=== PATIENT | female | born 1965 | race Caucasian/White ===

== ENCOUNTER → 2020-05-24 | Outpatient (CLI) | payer BC ==
[~2020-05-24] MED LIST: ATOR-2 PO; DULO60CA56 PO; ESTR20VI IM; FLUT9.9S NAS; HYDR25TA6 PO; LEVO75TA5 PO; LISI40TA PO; METF10007 PO; NARA1TAB PO; OLAN5TAB9 PO; OMEP-110 PO; PREG200C PO; PROG100C10 PO; ROPI0.5T4 PO
[2020-05-24 12:33] LABS: BASOPHILS # (AUTO) 0.04 x10^3/uL (0-0.1); BASOPHILS % (AUTO) 1 % (0-1); EOSINOPHILS # (AUTO) 0.04 x10^3/uL (0-0.4); EOSINOPHILS % (AUTO) 0 % (1-7); LYMPHOCYTES # (AUTO) 2.69 x10^3/uL (1-3.4); LYMPHOCYTES % (AUTO) 30 % (22-44); MD NO; MEAN CORPUSCULAR HEMOGLOBIN 29.2 pg (27.0-34.8); MEAN CORPUSCULAR HGB CONC 33.3 g/dL (32.4-35.8); MEAN CORPUSCULAR VOLUME 87.6 fL (80-100); MEAN PLATELET VOLUME 8.2 fL (7.4-10.4); MONOCYTES # (AUTO) 0.64 x10^3/uL (0.2-0.8); MONOCYTES % (AUTO) 7 % (2-9); NEUTROPHILS # (AUTO) 5.53 x10^3/uL (1.8-6.8); NEUTROPHILS % (AUTO) 62 % (42-75); PLATELET COUNT 273 x10^3/uL (130-400); RED BLOOD COUNT 4.84 x10^6/uL (3.82-5.3); RED CELL DISTRIBUTION WIDTH 13.5 % (9.6-15.2)
[2020-05-24 12:38] LABS: INTERNATIONAL NORMALIZED RATIO 0.99 (0.93-1.1); PROTHROMBIN TIME 10.5 Seconds (9.6-11.5)
[2020-05-24 12:40] LABS: ANION GAP 5 mmol/L (5-15); CALCIUM 9.5 mg/dL (8.5-10.1); CHLORIDE 104 mmol/L (98-107)
[2020-05-24 12:43] LABS: MICROSCOPIC NOT IND
[2020-05-24 12:43] LABS: ALANINE AMINOTRANSFERASE 29 U/L (12-78); ALKALINE PHOSPHATASE 55 U/L (45-117); BILIRUBIN,TOTAL 1.1 mg/dL (0.2-1.0); CREATININE 0.71 mg/dL (0.55-1.02); TOTAL PROTEIN 7.5 g/dL (6.4-8.2)
== END | disposition home or self-care (01) ==
LOC: STAR 11:05
PROVIDERS: ATTEND Neurological Surgery
DX: Z01.810 Encounter for preprocedural cardiovascular examination (principal); Z01.811 Encounter for preprocedural respiratory examination; Z01.812 Encounter for preprocedural laboratory examination; R79.1 Abnormal coagulation profile; R82.90 Unspecified abnormal findings in urine; R94.31 Abnormal electrocardiogram [ECG] [EKG]; M43.16 Spondylolisthesis, lumbar region; M54.16 Radiculopathy, lumbar region; M51.86 Other intervertebral disc disorders, lumbar region
CPT/HCPCS: 36415; 71046; 80053; 81003; 85025; 85610; 85730; 93005

== ENCOUNTER 2020-06-05 05:26 | Inpatient (IN) | payer BC ==
[~2020-06-05] VITALS: Ht 162.6 cm; Wt 101.0 kg
[~2020-06-05 05:26] MED LIST changes: +CARV25TA12 PO; +OXYC-307 PO; +POTASSIUM HCL PO
[2020-06-05] MEDS ORDERED: LACTATED RINGERS 1,000 ML IV SCH (06:06)
[2020-06-05] MEDS ORDERED: VANCOMYCIN 1,000 MG ONE (06:30)
[2020-06-05] MEDS ORDERED: BUPIVACAINE/PF-EPI 0.5% 1:200K ONE (06:30)
[2020-06-05] MEDS ORDERED: CHLORHEXIDINE 15 ML UDC MM ONE (06:30)
[2020-06-05] MEDS ORDERED: BACITRACIN 50,000 UNIT ONE (06:30)
[2020-06-05] MEDS ORDERED: FENTANYL PF 250 MCG/5ML ONE (06:51)
[2020-06-05] MEDS ORDERED: MIDAZOLAM 1 MG/ML, 2ML ONE (06:51)
[2020-06-05] MEDS ORDERED: GABAPENTIN 300 MG CAPSULE PO ONE (07:00)
[2020-06-05] MEDS ORDERED: MEPERIDINE/PF 25MG/0.5ML IVPush PRN (07:00)
[2020-06-05] MEDS ORDERED: ACETAMINOPHEN 500 MG TABLET PO ONE (07:00)
[2020-06-05] MEDS ORDERED: LABETALOL 5MG/ML, 20ML IV PRN (07:00)
[2020-06-05] MEDS ORDERED: hydrALAzine 20 MG/ML, 1ML IV PRN (07:00)
[2020-06-05] MEDS ORDERED: DIPHENHYDRAMINE 50 MG/ML, 1ML IVPush PRN ×2 (07:00→09:00)
[2020-06-05] MEDS ORDERED: HALOPERIDOL 5 MG/ML IV PRN (07:00)
[2020-06-05] MEDS ORDERED: FENTANYL PF 100 MCG/2ML IV PRN (07:00)
[2020-06-05] MEDS ORDERED: CEFAZOLIN 1,000 MG ONE (08:16)
[2020-06-05] MEDS ORDERED: NEOSTIGMINE 1 MG/ML, 10ML ONE (08:16)
[2020-06-05] MEDS ORDERED: ONDANSETRON 2MG/ML, 2ML ONE (08:16)
[2020-06-05] MEDS ORDERED: GLYCOPYRROLATE 0.2MG/1ML, 5ML ONE (08:16)
[2020-06-05] MEDS ORDERED: ROCURONIUM 10MG/ML,5ML ONE (08:16)
[2020-06-05] MEDS ORDERED: SUCCINYLCHOLINE 20 MG/ML, 10ML ONE (08:16)
[2020-06-05] MEDS ORDERED: DEXAMETHASONE 4 MG/ML, 1ML ONE (08:16)
[2020-06-05] MEDS ORDERED: PROPOFOL 10 MG/ML, 20ML ONE (08:16)
[2020-06-05] MEDS ORDERED: OXYcodone 5 MG/5 ML ORAL.SOL UDC ONE (08:44)
[2020-06-05] MEDS ORDERED: HYDROmorphone 2 MG/ML, 1ML ONE (08:44)
[2020-06-05] MEDS: OXYcodone 5 MG/5 ML ORAL.SOL UDC PO PRN ×2 (08:46→09:10)
[2020-06-05] MEDS: HYDROmorphone 1 MG/ML, 1ML INJ IVPush PRN ×9 (08:47→23:17)
[2020-06-05] MEDS ORDERED: ACETAMINOPHEN 325 MG TABLET PO PRN (09:00)
[2020-06-05] MEDS ORDERED: BISACODYL 10 MG SUPP PR PRN (09:00)
[2020-06-05] MEDS ORDERED: ONDANSETRON 2MG/ML, 2ML IVPush PRN (09:00)
[2020-06-05] MEDS ORDERED: MAGNESIUM HYDROXIDE 8%, 30ML UDC PO PRN (09:00)
[2020-06-05] MEDS ORDERED: NARATRIPTAN HCL 2.5 MG HOMEMEDPO PRN (09:00)
[2020-06-05] MEDS ORDERED: INSULIN REGULAR 100 UNITS/ML, 3ML VIAL SQ-INSULIN PRN ×2 (09:00→12:00)
[2020-06-05] MEDS ORDERED: PROGESTERONE 100 MG CAPSULE PO SCH (09:00)
[2020-06-05] MEDS ORDERED: OLANZAPINE 5 MG TABLET PO SCH (09:00)
[2020-06-05] MEDS ORDERED: PHARMACY MAY ADJ FOR RENAL FX MC PRN (09:00)
[2020-06-05] MEDS ORDERED: PROMETHAZINE 25 MG/ML, 1ML IM PRN (09:00)
[2020-06-05] MEDS ORDERED: HYDROmorphone 1 MG/ML, 1ML INJ ONE (09:34)
[2020-06-05] MEDS ORDERED: METHOCARBAMOL 1,000 MG in DEXTROSE 5% 100 ML IV ONE (10:03)
[2020-06-05] MEDS: DULOXETINE 30 MG CAPSULE.DR PO SCH (10:51)
[2020-06-05] MEDS: PREGABALIN 200 MG CAPSULE PO SCH ×2 (10:52→21:10)
[2020-06-05] MEDS: metFORMIN XR 500 MG TAB.ER.24H PO SCH (10:52)
[2020-06-05] MEDS: HYDROCHLOROTHIAZIDE 25 MG TABLET PO SCH (10:53)
[2020-06-05] MEDS: CARVEDILOL 25 MG TABLET PO SCH ×2 (10:53→21:10)
[2020-06-05] MEDS: NS + 20MEQ KCL 1,000 ML IV SCH ×2 (10:54→23:17)
[2020-06-05] MEDS: POTASSIUM CHLORIDE 10 MEQ TABLET.ER PO SCH (10:59)
[2020-06-05] MEDS: LEVOTHYROXINE 75 MCG TABLET PO SCH (11:00)
[2020-06-05 12:44] VITALS: BP 117/71
[2020-06-05] MEDS: OXYcodone/APAP 10/325MG TABLET PO PRN ×3 (12:52→21:11)
[2020-06-05] MEDS: OMEPRAZOLE 20 MG CAPSULE.DR PO SCH (15:02)
[2020-06-05] MEDS: CEFAZOLIN PMX 1GM/50ML 50 ML IVPB SCH ×2 (15:02→23:25)
[2020-06-05 20:09] VITALS: BP 124/58
[2020-06-05] MEDS: INSULIN REGULAR 100 UNITS/ML, 3ML VIAL SQ-INSULIN SCH ×2 (20:30→21:00)
[2020-06-05] MEDS ORDERED: PREGABALIN 200 MG CAPSULE PO SCH (21:00)
[2020-06-05] MEDS: ATORVASTATIN 40 MG TABLET PO SCH (21:10)
[2020-06-05] MEDS: ROPINIROLE 0.5MG TABLET PO SCH (21:10)
[2020-06-05] MEDS: OLANZAPINE 5 MG TABLET PO SCH (21:11)
[2020-06-05] MEDS: METHOCARBAMOL 750 MG TABLET PO PRN (23:23)
[2020-06-06 00:12] VITALS: BP 158/91
[2020-06-06] MEDS: OXYcodone/APAP 10/325MG TABLET PO PRN ×4 (01:18→20:52)
[2020-06-06] MEDS: LEVOTHYROXINE 75 MCG TABLET PO SCH (04:20)
[2020-06-06] MEDS: HYDROmorphone 1 MG/ML, 1ML INJ IVPush PRN ×9 (04:20→22:49)
[2020-06-06 04:21] VITALS: BP 156/99
[2020-06-06] MEDS: OMEPRAZOLE 20 MG CAPSULE.DR PO SCH ×2 (05:19→16:18)
[2020-06-06 05:40] LABS: BASOPHILS # (AUTO) 0.02 x10^3/uL (0-0.1); BASOPHILS % (AUTO) 0 % (0-1); EOSINOPHILS # (AUTO) 0.01 x10^3/uL (0-0.4); EOSINOPHILS % (AUTO) 0 % (1-7); LYMPHOCYTES # (AUTO) 1.59 x10^3/uL (1-3.4); LYMPHOCYTES % (AUTO) 19 % (22-44); MD NO; MEAN CORPUSCULAR HEMOGLOBIN 29.9 pg (27.0-34.8); MEAN CORPUSCULAR HGB CONC 33.3 g/dL (32.4-35.8); MONOCYTES # (AUTO) 0.64 x10^3/uL (0.2-0.8); MONOCYTES % (AUTO) 8 % (2-9); NEUTROPHILS # (AUTO) 6.31 x10^3/uL (1.8-6.8); NEUTROPHILS % (AUTO) 74 % (42-75); PLATELET COUNT 157 x10^3/uL (130-400); RED BLOOD COUNT 3.84 x10^6/uL (3.82-5.3); RED CELL DISTRIBUTION WIDTH 13.4 % (9.6-15.2)
[2020-06-06 05:54] LABS: ANION GAP 5 mmol/L (5-15); CALCIUM 8.4 mg/dL (8.5-10.1); CHLORIDE 104 mmol/L (98-107); CREATININE 0.52 mg/dL (0.55-1.02)
[2020-06-06] MEDS ORDERED: VANCOMYCIN 1,000 MG ONE (06:32)
[2020-06-06] MEDS ORDERED: BACITRACIN 50,000 UNIT ONE (06:32)
[2020-06-06] MEDS ORDERED: BUPIVACAINE/PF-EPI 0.5% 1:200K ONE (06:32)
[2020-06-06] MEDS ORDERED: FENTANYL PF 250 MCG/5ML ONE (07:31)
[2020-06-06] MEDS ORDERED: MIDAZOLAM 1 MG/ML, 2ML ONE (07:31)
[2020-06-06] MEDS: INSULIN REGULAR 100 UNITS/ML, 3ML VIAL SQ-INSULIN SCH ×4 (07:34→21:00)
[2020-06-06 07:53] VITALS: BP 160/85
[2020-06-06] MEDS ORDERED: metFORMIN XR 500 MG TAB.ER.24H PO SCH (08:00)
[2020-06-06] MEDS: NS + 20MEQ KCL 1,000 ML IV SCH ×4 (08:17→19:34)
[2020-06-06] MEDS: metFORMIN XR 500 MG TAB.ER.24H PO SCH (08:19)
[2020-06-06] MEDS: METHOCARBAMOL 750 MG TABLET PO PRN ×2 (08:19→20:51)
[2020-06-06] MEDS: PREGABALIN 200 MG CAPSULE PO SCH ×2 (08:20→20:51)
[2020-06-06] MEDS: DULOXETINE 30 MG CAPSULE.DR PO SCH (08:20)
[2020-06-06] MEDS: POTASSIUM CHLORIDE 10 MEQ TABLET.ER PO SCH (08:20)
[2020-06-06] MEDS: HYDROCHLOROTHIAZIDE 25 MG TABLET PO SCH (08:20)
[2020-06-06] MEDS: CARVEDILOL 25 MG TABLET PO SCH ×2 (08:20→20:51)
[2020-06-06] MEDS: FLUTICASONE NASAL SPRAY 16GM NAS SCH (08:21)
[2020-06-06] MEDS ORDERED: CHLORHEXIDINE 15 ML UDC MM STA (08:43)
[2020-06-06] MEDS ORDERED: GABAPENTIN 300 MG CAPSULE ONE (08:57)
[2020-06-06] MEDS ORDERED: ACETAMINOPHEN 500 MG TABLET ONE (08:58)
[2020-06-06] MEDS ORDERED: CHLORHEXIDINE 15 ML UDC ONE (08:59)
[2020-06-06] MEDS ORDERED: HALOPERIDOL 5 MG/ML IV PRN (09:00)
[2020-06-06] MEDS ORDERED: GABAPENTIN 300 MG CAPSULE PO ONE (09:00)
[2020-06-06] MEDS ORDERED: ACETAMINOPHEN 500 MG TABLET PO ONE (09:00)
[2020-06-06] MEDS ORDERED: ONDANSETRON 2MG/ML, 2ML IVPush PRN ×2 (09:00→12:00)
[2020-06-06] MEDS ORDERED: LABETALOL 5MG/ML, 20ML IV PRN (09:00)
[2020-06-06] MEDS ORDERED: OLANZAPINE 5 MG TABLET PO SCH (09:00)
[2020-06-06] MEDS ORDERED: hydrALAzine 20 MG/ML, 1ML IV PRN (09:00)
[2020-06-06] MEDS ORDERED: MEPERIDINE/PF 25MG/0.5ML IVPush PRN (09:00)
[2020-06-06] MEDS ORDERED: OXYcodone 5 MG/5 ML ORAL.SOL UDC PO PRN (09:00)
[2020-06-06] MEDS ORDERED: BUPIVACAINE/PF-EPI 0.5% 1:200K INFIL ONE (10:08)
[2020-06-06] MEDS ORDERED: VANCOMYCIN 1,000 MG IM ONE (10:08)
[2020-06-06] MEDS ORDERED: FENTANYL PF 100 MCG/2ML ONE ×3 (11:27→12:32)
[2020-06-06] MEDS: FENTANYL PF 100 MCG/2ML IV PRN ×2 (11:58→12:06)
[2020-06-06] MEDS ORDERED: OXYcodone 5 MG/5 ML ORAL.SOL UDC ONE (11:59)
[2020-06-06] MEDS ORDERED: HYDROmorphone 2 MG/ML, 1ML ONE (11:59)
[2020-06-06] MEDS ORDERED: SENNA/DOCUSATE TABLET PO PRN (12:00)
[2020-06-06] MEDS ORDERED: DIPHENHYDRAMINE 50 MG/ML, 1ML IVPush PRN (12:00)
[2020-06-06] MEDS ORDERED: PHARMACY MAY ADJ FOR RENAL FX MC PRN (12:00)
[2020-06-06] MEDS ORDERED: HYDROmorphone 1 MG/ML, 1ML INJ IVPush PRN (12:00)
[2020-06-06] MEDS ORDERED: INSULIN REGULAR 100 UNITS/ML, 3ML VIAL SQ-INSULIN PRN (12:00)
[2020-06-06] MEDS ORDERED: PROMETHAZINE 25 MG/ML, 1ML IM PRN (12:00)
[2020-06-06] MEDS ORDERED: MAGNESIUM HYDROXIDE 8%, 30ML UDC PO PRN (12:00)
[2020-06-06] MEDS ORDERED: BISACODYL 10 MG SUPP PR PRN (12:00)
[2020-06-06] MEDS ORDERED: METHOCARBAMOL 1,000 MG in DEXTROSE 5% 100 ML IV ONE (13:00)
[2020-06-06 14:00] VITALS: BP 126/71
[2020-06-06] MEDS ORDERED: ENOXAPARIN 40 MG/0.4 ML SQ SCH (17:00)
[2020-06-06] MEDS: CEFAZOLIN PMX 1GM/50ML 50 ML IVPB SCH (17:42)
[2020-06-06] MEDS: LISINOPRIL 40 MG TABLET PO SCH (17:42)
[2020-06-06 18:39] VITALS: BP 126/68
[2020-06-06] MEDS: ATORVASTATIN 40 MG TABLET PO SCH (20:51)
[2020-06-06] MEDS: OLANZAPINE 5 MG TABLET PO SCH (20:51)
[2020-06-06] MEDS: SODIUM CHLORIDE FLUSH 10ML SYR IVF SCH (20:51)
[2020-06-06] MEDS: ROPINIROLE 0.5MG TABLET PO SCH (20:51)
[2020-06-07] MEDS: OXYcodone/APAP 10/325MG TABLET PO PRN ×6 (01:10→22:06)
[2020-06-07] MEDS: CEFAZOLIN PMX 1GM/50ML 50 ML IVPB SCH (01:10)
[2020-06-07 01:51] VITALS: BP 169/99
[2020-06-07] MEDS: HYDROmorphone 1 MG/ML, 1ML INJ IVPush PRN ×11 (02:09→22:53)
[2020-06-07] MEDS: NS + 20MEQ KCL 1,000 ML IV SCH ×3 (03:10→16:41)
[2020-06-07 04:00] VITALS: BP 137/75
[2020-06-07] MEDS: METHOCARBAMOL 750 MG TABLET PO PRN ×3 (05:14→22:07)
[2020-06-07 06:05] LABS: BASOPHILS # (AUTO) 0.02 x10^3/uL (0-0.1); BASOPHILS % (AUTO) 0 % (0-1); EOSINOPHILS % (AUTO) 0 % (1-7); LYMPHOCYTES # (AUTO) 1.74 x10^3/uL (1-3.4); LYMPHOCYTES % (AUTO) 18 % (22-44); MD NO; MEAN CORPUSCULAR HEMOGLOBIN 29.9 pg (27.0-34.8); MEAN CORPUSCULAR HGB CONC 33.6 g/dL (32.4-35.8); MEAN PLATELET VOLUME 8.2 fL (7.4-10.4); MONOCYTES # (AUTO) 0.76 x10^3/uL (0.2-0.8); MONOCYTES % (AUTO) 8 % (2-9); NEUTROPHILS # (AUTO) 7.23 x10^3/uL (1.8-6.8); NEUTROPHILS % (AUTO) 74 % (42-75); PLATELET COUNT 145 x10^3/uL (130-400); RED CELL DISTRIBUTION WIDTH 13.6 % (9.6-15.2)
[2020-06-07] MEDS: LEVOTHYROXINE 75 MCG TABLET PO SCH (06:21)
[2020-06-07] MEDS: ENOXAPARIN 40 MG/0.4 ML SQ SCH (06:21)
[2020-06-07] MEDS: OMEPRAZOLE 20 MG CAPSULE.DR PO SCH ×2 (06:21→16:43)
[2020-06-07] MEDS: INSULIN REGULAR 100 UNITS/ML, 3ML VIAL SQ-INSULIN SCH ×4 (07:31→21:00)
[2020-06-07 07:39] VITALS: BP 139/73
[2020-06-07] MEDS: PREGABALIN 200 MG CAPSULE PO SCH ×2 (08:27→20:53)
[2020-06-07] MEDS: metFORMIN XR 500 MG TAB.ER.24H PO SCH (08:27)
[2020-06-07] MEDS: DULOXETINE 30 MG CAPSULE.DR PO SCH (08:27)
[2020-06-07] MEDS: LISINOPRIL 40 MG TABLET PO SCH (08:28)
[2020-06-07] MEDS: CARVEDILOL 25 MG TABLET PO SCH ×2 (08:28→20:58)
[2020-06-07] MEDS: POTASSIUM CHLORIDE 10 MEQ TABLET.ER PO SCH (08:28)
[2020-06-07] MEDS: HYDROCHLOROTHIAZIDE 25 MG TABLET PO SCH (08:28)
[2020-06-07] MEDS: SODIUM CHLORIDE FLUSH 10ML SYR IVF SCH ×2 (08:28→21:01)
[2020-06-07] MEDS: FLUTICASONE NASAL SPRAY 16GM NAS SCH (08:28)
[2020-06-07 13:31] VITALS: BP 90/51
[2020-06-07 18:36] VITALS: BP 102/65
[2020-06-07] MEDS: OLANZAPINE 5 MG TABLET PO SCH (20:53)
[2020-06-07] MEDS: ATORVASTATIN 40 MG TABLET PO SCH (20:54)
[2020-06-07] MEDS: ROPINIROLE 0.5MG TABLET PO SCH (20:54)
[2020-06-07 20:55] VITALS: BP 102/58
[2020-06-08] MEDS: HYDROmorphone 1 MG/ML, 1ML INJ IVPush PRN ×9 (00:57→22:43)
[2020-06-08] MEDS: NS + 20MEQ KCL 1,000 ML IV SCH ×3 (01:09→20:00)
[2020-06-08 01:38] VITALS: BP 122/79
[2020-06-08] MEDS: OXYcodone/APAP 10/325MG TABLET PO PRN ×6 (02:13→23:29)
[2020-06-08] MEDS: OMEPRAZOLE 20 MG CAPSULE.DR PO SCH ×2 (05:19→16:39)
[2020-06-08] MEDS: LEVOTHYROXINE 75 MCG TABLET PO SCH (05:20)
[2020-06-08] MEDS: ENOXAPARIN 40 MG/0.4 ML SQ SCH (05:20)
[2020-06-08] MEDS: METHOCARBAMOL 750 MG TABLET PO PRN ×3 (06:12→22:48)
[2020-06-08] MEDS: INSULIN REGULAR 100 UNITS/ML, 3ML VIAL SQ-INSULIN SCH ×4 (06:16→21:00)
[2020-06-08 06:30] LABS: BASOPHILS # (AUTO) 0.03 x10^3/uL (0-0.1); BASOPHILS % (AUTO) 0 % (0-1); EOSINOPHILS # (AUTO) 0.07 x10^3/uL (0-0.4); EOSINOPHILS % (AUTO) 1 % (1-7); LYMPHOCYTES # (AUTO) 1.58 x10^3/uL (1-3.4); LYMPHOCYTES % (AUTO) 24 % (22-44); MD NO; MEAN CORPUSCULAR HEMOGLOBIN 29.7 pg (27.0-34.8); MEAN CORPUSCULAR HGB CONC 33.1 g/dL (32.4-35.8); MEAN PLATELET VOLUME 8.2 fL (7.4-10.4); MONOCYTES # (AUTO) 0.63 x10^3/uL (0.2-0.8); MONOCYTES % (AUTO) 10 % (2-9); NEUTROPHILS # (AUTO) 4.26 x10^3/uL (1.8-6.8); NEUTROPHILS % (AUTO) 65 % (42-75); PLATELET COUNT 143 x10^3/uL (130-400); RED CELL DISTRIBUTION WIDTH 13.6 % (9.6-15.2)
[2020-06-08 07:34] VITALS: BP 121/76
[2020-06-08] MEDS: CARVEDILOL 25 MG TABLET PO SCH ×2 (08:41→22:53)
[2020-06-08] MEDS: HYDROCHLOROTHIAZIDE 25 MG TABLET PO SCH (08:41)
[2020-06-08] MEDS: PREGABALIN 200 MG CAPSULE PO SCH ×2 (08:41→22:49)
[2020-06-08] MEDS: DULOXETINE 30 MG CAPSULE.DR PO SCH (08:41)
[2020-06-08] MEDS: POTASSIUM CHLORIDE 10 MEQ TABLET.ER PO SCH (08:41)
[2020-06-08] MEDS: LISINOPRIL 40 MG TABLET PO SCH (08:41)
[2020-06-08] MEDS: metFORMIN XR 500 MG TAB.ER.24H PO SCH (08:42)
[2020-06-08] MEDS: FLUTICASONE NASAL SPRAY 16GM NAS SCH (08:42)
[2020-06-08] MEDS: SODIUM CHLORIDE FLUSH 10ML SYR IVF SCH ×2 (08:42→22:57)
[2020-06-08 13:59] VITALS: BP 95/59
[2020-06-08 18:55] VITALS: BP 139/85
[2020-06-08 22:40] VITALS: BP 127/68
[2020-06-08] MEDS: ATORVASTATIN 40 MG TABLET PO SCH (22:49)
[2020-06-08] MEDS: OLANZAPINE 5 MG TABLET PO SCH (22:49)
[2020-06-08] MEDS: ROPINIROLE 0.5MG TABLET PO SCH (22:49)
[2020-06-08] MEDS: SENNA/DOCUSATE TABLET PO PRN (23:29)
[2020-06-09] MEDS: HYDROmorphone 1 MG/ML, 1ML INJ IVPush PRN ×5 (01:55→22:46)
[2020-06-09 02:29] VITALS: BP 131/82
[2020-06-09] MEDS: OXYcodone/APAP 10/325MG TABLET PO PRN ×5 (03:56→20:16)
[2020-06-09] MEDS: NS + 20MEQ KCL 1,000 ML IV SCH ×3 (04:00→20:00)
[2020-06-09] MEDS: LEVOTHYROXINE 75 MCG TABLET PO SCH (05:04)
[2020-06-09] MEDS: ENOXAPARIN 40 MG/0.4 ML SQ SCH (05:04)
[2020-06-09] MEDS: OMEPRAZOLE 20 MG CAPSULE.DR PO SCH ×2 (05:04→15:59)
[2020-06-09 06:33] LABS: BASOPHILS # (AUTO) 0.02 x10^3/uL (0-0.1); BASOPHILS % (AUTO) 0 % (0-1); EOSINOPHILS # (AUTO) 0.08 x10^3/uL (0-0.4); EOSINOPHILS % (AUTO) 2 % (1-7); LYMPHOCYTES % (AUTO) 29 % (22-44); MD NO; MEAN CORPUSCULAR HEMOGLOBIN 28.9 pg (27.0-34.8); MEAN CORPUSCULAR HGB CONC 32.4 g/dL (32.4-35.8); MEAN PLATELET VOLUME 7.7 fL (7.4-10.4); MONOCYTES # (AUTO) 0.35 x10^3/uL (0.2-0.8); MONOCYTES % (AUTO) 7 % (2-9); NEUTROPHILS # (AUTO) 3.01 x10^3/uL (1.8-6.8); NEUTROPHILS % (AUTO) 62 % (42-75); PLATELET COUNT 163 x10^3/uL (130-400); RED BLOOD COUNT 3.29 x10^6/uL (3.82-5.3); RED CELL DISTRIBUTION WIDTH 13.4 % (9.6-15.2)
[2020-06-09] MEDS: METHOCARBAMOL 750 MG TABLET PO PRN ×3 (06:46→22:46)
[2020-06-09] MEDS: INSULIN REGULAR 100 UNITS/ML, 3ML VIAL SQ-INSULIN SCH ×4 (06:50→21:00)
[2020-06-09 07:44] VITALS: BP 120/68
[2020-06-09] MEDS: LISINOPRIL 40 MG TABLET PO SCH (08:13)
[2020-06-09] MEDS: CARVEDILOL 25 MG TABLET PO SCH ×2 (08:15→22:47)
[2020-06-09] MEDS: POTASSIUM CHLORIDE 10 MEQ TABLET.ER PO SCH (08:15)
[2020-06-09] MEDS: DULOXETINE 30 MG CAPSULE.DR PO SCH (08:16)
[2020-06-09] MEDS: HYDROCHLOROTHIAZIDE 25 MG TABLET PO SCH (08:18)
[2020-06-09] MEDS: PREGABALIN 200 MG CAPSULE PO SCH ×2 (08:18→22:36)
[2020-06-09] MEDS: metFORMIN XR 500 MG TAB.ER.24H PO SCH (08:20)
[2020-06-09] MEDS: FLUTICASONE NASAL SPRAY 16GM NAS SCH (09:04)
[2020-06-09] MEDS: SODIUM CHLORIDE FLUSH 10ML SYR IVF SCH ×2 (09:04→22:36)
[2020-06-09 13:04] VITALS: BP 136/84
[2020-06-09 20:06] VITALS: BP 111/62
[2020-06-09] MEDS: ATORVASTATIN 40 MG TABLET PO SCH (22:36)
[2020-06-09] MEDS: SENNA/DOCUSATE TABLET PO PRN (22:37)
[2020-06-09] MEDS: OLANZAPINE 5 MG TABLET PO SCH (22:37)
[2020-06-09] MEDS: ROPINIROLE 0.5MG TABLET PO SCH (22:37)
[2020-06-09 22:40] VITALS: BP 132/69
[2020-06-10] MEDS: OXYcodone/APAP 10/325MG TABLET PO PRN ×3 (00:45→09:26)
[2020-06-10 01:07] VITALS: BP 127/71
[2020-06-10] MEDS: NS + 20MEQ KCL 1,000 ML IV SCH (04:00)
[2020-06-10] MEDS: LEVOTHYROXINE 75 MCG TABLET PO SCH (05:06)
[2020-06-10] MEDS: ENOXAPARIN 40 MG/0.4 ML SQ SCH (05:06)
[2020-06-10] MEDS: OMEPRAZOLE 20 MG CAPSULE.DR PO SCH (05:06)
[2020-06-10 05:35] LABS: BASOPHILS # (AUTO) 0.02 x10^3/uL (0-0.1); BASOPHILS % (AUTO) 1 % (0-1); EOSINOPHILS # (AUTO) 0.12 x10^3/uL (0-0.4); EOSINOPHILS % (AUTO) 2 % (1-7); LYMPHOCYTES # (AUTO) 1.45 x10^3/uL (1-3.4); LYMPHOCYTES % (AUTO) 31 % (22-44); MD NO; MEAN CORPUSCULAR HEMOGLOBIN 29.4 pg (27.0-34.8); MEAN CORPUSCULAR HGB CONC 33.2 g/dL (32.4-35.8); MEAN PLATELET VOLUME 7.9 fL (7.4-10.4); MONOCYTES # (AUTO) 0.35 x10^3/uL (0.2-0.8); MONOCYTES % (AUTO) 7 % (2-9); NEUTROPHILS # (AUTO) 2.82 x10^3/uL (1.8-6.8); NEUTROPHILS % (AUTO) 59 % (42-75); PLATELET COUNT 187 x10^3/uL (130-400); RED BLOOD COUNT 3.54 x10^6/uL (3.82-5.3); RED CELL DISTRIBUTION WIDTH 13.2 % (9.6-15.2)
[2020-06-10] MEDS: METHOCARBAMOL 750 MG TABLET PO PRN (06:50)
[2020-06-10] MEDS: INSULIN REGULAR 100 UNITS/ML, 3ML VIAL SQ-INSULIN SCH (06:53)
[2020-06-10 07:30] VITALS: BP 125/67
[2020-06-10] MEDS: LISINOPRIL 40 MG TABLET PO SCH (08:14)
[2020-06-10] MEDS: SENNA/DOCUSATE TABLET PO PRN (08:15)
[2020-06-10] MEDS: DULOXETINE 30 MG CAPSULE.DR PO SCH (08:15)
[2020-06-10] MEDS: CARVEDILOL 25 MG TABLET PO SCH (08:15)
[2020-06-10] MEDS: POTASSIUM CHLORIDE 10 MEQ TABLET.ER PO SCH (08:15)
[2020-06-10] MEDS: HYDROCHLOROTHIAZIDE 25 MG TABLET PO SCH (08:15)
[2020-06-10] MEDS: metFORMIN XR 500 MG TAB.ER.24H PO SCH (08:15)
[2020-06-10] MEDS: PREGABALIN 200 MG CAPSULE PO SCH (08:15)
[2020-06-10] MEDS: FLUTICASONE NASAL SPRAY 16GM NAS SCH (08:16)
[2020-06-10] MEDS: SODIUM CHLORIDE FLUSH 10ML SYR IVF SCH (08:16)
[2020-06-10] MEDS ORDERED: MAGNESIUM CITRATE 300ML ORAL SOL PO ONE (08:30)
[2020-06-10] MEDS ORDERED: OXYC10TA6 PO (10:17)
[2020-06-10] MEDS ORDERED: METH750T87 PO (10:18)
[2020-06-11] MEDS ORDERED: PROGESTERONE 100 MG CAPSULE PO SCH (09:00)
== END 2020-06-10 10:32 | disposition home or self-care (01) | DRG 455 ==
LOC: ORIP 05:26 → 4NE 09:54 → 4EST 13:25 → 4NE 13:25 → DCLOUNGE 06-10 10:26
PROVIDERS: ADMIT Neurological Surgery; ATTEND Neurological Surgery
PROC: 01NB0ZZ Release Lumbar Nerve, Open Approach (ICD-10-PCS; 2020-06-05)
PROC: 0SB20ZZ Excision of Lumbar Vertebral Disc, Open Approach (ICD-10-PCS; 2020-06-05)
PROC: 0SG00A0 Fusion of Lumbar Vertebral Joint with Interbody Fusion Device, Anterior Approach, Anterior Column, Open Approach (ICD-10-PCS; principal; 2020-06-05 07:00)
PROC: 0SG0071 Fusion of Lumbar Vertebral Joint with Autologous Tissue Substitute, Posterior Approach, Posterior Column, Open Approach (ICD-10-PCS; 2020-06-06)
PROC: 8E0W0CZ Robotic Assisted Procedure of Trunk Region, Open Approach (ICD-10-PCS; 2020-06-06)
DX: M51.16 Intervertebral disc disorders with radiculopathy, lumbar region (principal); G89.29 Other chronic pain; M21.379 Foot drop, unspecified foot; M47.9 Spondylosis, unspecified; M48.061 Spinal stenosis, lumbar region without neurogenic claudication; M53.2X6 Spinal instabilities, lumbar region; Z88.1 Allergy status to other antibiotic agents; Z88.5 Allergy status to narcotic agent; Z88.2 Allergy status to sulfonamides; Z88.8 Allergy status to other drugs, medicaments and biological substances; Z87.891 Personal history of nicotine dependence; Z20.828 Contact with and (suspected) exposure to other viral communicable diseases
CPT/HCPCS: 36415; 72100; 72131; 80048; 82040; 82962; 85025; 87635; C1713; G0378; J0690; J1100; J1170; J1650; J1815; J2250; J2405; J2704; J2710; J3010; J3370; J3480; C1763; C1769; C1889; J0330; J2800; J7120